=== PATIENT | female | born 1940 | race Caucasian/White ===

== ENCOUNTER 2016-09-23 12:00 | Outpatient (RCR) | payer MEDICARE, BC ==
[2016-07-01 12:30] VITALS: BP 121/73; PULSE 87; TEMP 97.5
[2016-07-08 12:45] VITALS: BP 138/46; PULSE 94; TEMP 98.2
[2016-07-15 12:55] VITALS: BP 117/50; PULSE 88; TEMP 98.4
[2016-07-21 13:00] VITALS: BP 123/58; PULSE 80; TEMP 97.6
[2016-07-29 12:38] VITALS: BP 111/55; PULSE 87; TEMP 99.2
[2016-08-05 13:53] VITALS: BP 127/55; PULSE 76; TEMP 98.3
[2016-08-12 12:23] VITALS: BP 124/65; PULSE 81; TEMP 97.5
[2016-08-19 12:24] VITALS: BP 12/68; PULSE 94; TEMP 98.3
[2016-08-26 12:19] VITALS: BP 126/53; PULSE 77; TEMP 97.1
[2016-08-31 13:15] VITALS: BP 145/53; PULSE 85; TEMP 98.4
[2016-09-09 14:38] VITALS: BP 140/52; PULSE 86; TEMP 97.5
[2016-09-16 12:20] VITALS: BP 134/63; PULSE 92; TEMP 97.9
[~2016-09-23] VITALS: Ht 172.7 cm; Wt 65.9 kg
[~2016-09-23 12:00] MED LIST: ANORO IH; BACTRIM DS 8001 TAB PO; COZAAR 50MG50 MG/TAB PO; GLUCOSAMINE/CHONDROI PO; IBU-6600 MG PO; MULTIPLE VITAMI1 TA4 PO; MVI PO; OCUVITE PO; PREMPRO 0.625/21 TAB PO; PROTONIX 40MG T40 MG PO; SPIRIVA INH IH; THEO-24100 MG PO; VITAMIN B12 PO; VITAMIN C BUFF500 MG PO; VITAMIN C500 MG PO; VITAMIN D1000 IU PO; ZEMAIRA
[2016-09-23 12:35] VITALS: BP 113/63; PULSE 81; TEMP 98.4
== END 2016-09-29 | disposition home or self-care (01) ==
LOC: EUO
DX: E88.01 Alpha-1-antitrypsin deficiency (principal)
CPT/HCPCS: J0256

== ENCOUNTER 2016-12-23 12:00 | Outpatient (RCR) | payer MEDICARE, BC ==
[2016-09-30 12:56] VITALS: BP 135/78; PULSE 73; TEMP 97.9
[2016-10-07 12:50] VITALS: BP 98/79; PULSE 76; TEMP 99.4
[2016-10-14 12:30] VITALS: BP 122/57; PULSE 73; TEMP 97.4
[2016-10-21 13:00] VITALS: BP 126/55; PULSE 84; TEMP 99
[2016-10-28 12:38] VITALS: BP 106/67; PULSE 88; TEMP 99.1
[2016-11-03 12:40] VITALS: BP 120/48; PULSE 95
[2016-11-11 12:28] VITALS: BP 139/84; PULSE 76; TEMP 98.6
[2016-11-18 12:20] VITALS: BP 116/59; PULSE 76; TEMP 98.1
[2016-11-25 12:31] VITALS: BP 133/85; PULSE 89; TEMP 98.1
[2016-12-09 12:30] VITALS: BP 118/59; PULSE 73; TEMP 97.9
[2016-12-15 12:33] VITALS: BP 132/96; PULSE 42; TEMP 98.5
[~2016-12-23] VITALS: Ht 172.7 cm; Wt 67.1 kg
[2016-12-23 12:30] VITALS: BP 122/56; PULSE 96; TEMP 97.8
== END 2016-12-29 | disposition home or self-care (01) ==
LOC: EUO
DX: E88.01 Alpha-1-antitrypsin deficiency (principal)
CPT/HCPCS: J0256

== ENCOUNTER 2017-03-23 13:00 | Outpatient (RCR) | payer MEDICARE, BC ==
[2016-12-30 12:18] VITALS: BP 109/50; PULSE 83; TEMP 97.3
[2017-01-06 13:08] VITALS: BP 111/52; PULSE 86; TEMP 98.7
[2017-01-13 12:30] VITALS: BP 124/60; PULSE 79; TEMP 97.3
[2017-01-20 12:10] VITALS: BP 128/55; PULSE 85; TEMP 97.7
[2017-01-27 12:36] VITALS: BP 118/73; PULSE 99; TEMP 97.7
[2017-02-03 12:26] VITALS: BP 118/58; PULSE 83; TEMP 98
[2017-02-10 12:24] VITALS: BP 116/56; PULSE 76; TEMP 97.7
[2017-02-16 12:27] VITALS: BP 110/59; PULSE 90; TEMP 97.4
[2017-02-24 12:31] VITALS: BP 117/51; PULSE 77; TEMP 97.5
[2017-03-03 12:45] VITALS: BP 108/55; PULSE 72; TEMP 97.6
[2017-03-11 12:25] VITALS: BP 117/69; PULSE 91; TEMP 98.7
[2017-03-17 12:11] VITALS: BP 114/65; PULSE 98; TEMP 97.4
[~2017-03-23] VITALS: Ht 172.7 cm; Wt 67.1 kg
[~2017-03-23 13:00] MED LIST changes: +GLUCOSAMINE & C1 CAP PO; -GLUCOSAMINE/CHONDROI PO; -IBU-6600 MG PO; +MOTRIN 600600 MG/TAB PO; -MULTIPLE VITAMI1 TA4 PO; +MULTIPLE VITAMI1 TA5 PO; -OCUVITE PO; +OCUVITE1 TA1 PO; -ZEMAIRA; +ZEMAIRA IV
[2017-03-23 13:10] VITALS: BP 110/54; PULSE 86; TEMP 99
== END 2017-03-30 ==
LOC: EUO
DX: E88.01 Alpha-1-antitrypsin deficiency (principal); Z79.899 Other long term (current) drug therapy
CPT/HCPCS: J0256

== ENCOUNTER 2017-06-23 12:00 | Outpatient (RCR) | payer MEDICARE, BC ==
[2017-03-31 12:13] VITALS: BP 117/75; PULSE 93; TEMP 97.3
[2017-04-07 12:31] VITALS: BP 117/57; PULSE 78; TEMP 97.5
[2017-04-14 12:40] VITALS: BP 134/66; PULSE 81; TEMP 97.5
[2017-04-21 12:15] VITALS: BP 123/72; PULSE 101; TEMP 97.4
[2017-04-27 11:28] VITALS: BP 141/60; PULSE 92; TEMP 97.3
[2017-05-05 12:59] VITALS: BP 132/61; PULSE 96; TEMP 98.4
[2017-05-12 12:15] VITALS: BP 96/65; PULSE 96; TEMP 97.7
[2017-05-18 12:50] VITALS: BP 110/58; PULSE 110; TEMP 97.9
[2017-05-26 12:38] VITALS: BP 137/84; PULSE 73; TEMP 97.5
[2017-06-02 13:25] VITALS: BP 119/82; PULSE 96; TEMP 98.2
[2017-06-09 12:42] VITALS: BP 121/82; PULSE 98; TEMP 98.2
[2017-06-16 12:17] VITALS: BP 124/58; PULSE 85; TEMP 97.4
[~2017-06-23] VITALS: Ht 172.7 cm; Wt 66.7 kg
[2017-06-23 12:36] VITALS: BP 120/68; PULSE 83; TEMP 97.4
== END 2017-06-23 13:12 | disposition home or self-care (01) ==
LOC: EUO 12:00
DX: E88.01 Alpha-1-antitrypsin deficiency (principal)
CPT/HCPCS: J0256

== ENCOUNTER 2017-09-22 12:00 | Outpatient (RCR) | payer MEDICARE, BC ==
[2017-06-30 12:43] VITALS: BP 122/49; PULSE 107; TEMP 97.4
[2017-07-07 12:29] VITALS: BP 139/80; PULSE 73; TEMP 97.7
[2017-07-14 12:30] VITALS: BP 129/54; PULSE 78; TEMP 98
[2017-07-21 12:00] VITALS: BP 114/50; PULSE 78; TEMP 97.5
[2017-07-28 12:53] VITALS: BP 124/75; PULSE 91; TEMP 97.3
[2017-08-04 12:40] VITALS: BP 122/61; PULSE 102; TEMP 98.5
[2017-08-11 12:17] VITALS: BP 126/69; PULSE 84; TEMP 97.2
[2017-08-19 14:20] VITALS: BP 146/39; PULSE 85; TEMP 97.6
[2017-09-08 12:35] VITALS: BP 123/67; PULSE 112; TEMP 98.6
[~2017-09-22] VITALS: Ht 172.7 cm; Wt 67.1 kg
[2017-09-22 12:19] VITALS: BP 123/72; PULSE 71; TEMP 97.5
== END 2017-09-28 ==
LOC: EUO
DX: E88.01 Alpha-1-antitrypsin deficiency (principal); Z79.899 Other long term (current) drug therapy
CPT/HCPCS: J0256; J3010

== ENCOUNTER 2017-12-21 12:00 | Outpatient (RCR) | payer MEDICARE, BC ==
[2017-09-29 13:09] VITALS: BP 95/60; PULSE 108; TEMP 98.4
[2017-10-06 12:24] VITALS: BP 122/56; PULSE 80; TEMP 97.6
[2017-10-13 12:20] VITALS: BP 110/64; PULSE 86; TEMP 97.3
[2017-10-20 12:38] VITALS: BP 124/61; PULSE 96; TEMP 97
[2017-10-27 13:05] VITALS: BP 123/57; PULSE 84; TEMP 97.8
[2017-11-03 12:45] VITALS: BP 118/47; PULSE 120; TEMP 98.5
[2017-11-10 12:45] VITALS: BP 135/57; PULSE 57; TEMP 97.4
[2017-11-17 12:19] VITALS: BP 95/74; PULSE 105; TEMP 98
[2017-11-24 12:50] VITALS: BP 140/70; PULSE 88; TEMP 97.9
[2017-12-01 12:46] VITALS: BP 113/72; PULSE 78; TEMP 97.1
[2017-12-08 12:33] VITALS: BP 116/60; PULSE 113; TEMP 97.3
[2017-12-15 12:33] VITALS: BP 110/62; PULSE 114; TEMP 97.5
[~2017-12-21] VITALS: Ht 172.7 cm; Wt 64.0 kg
[2017-12-21 12:40] VITALS: BP 113/59; PULSE 72; TEMP 99.4
== END 2017-12-28 | disposition still patient (30) ==
LOC: EUO
DX: E88.01 Alpha-1-antitrypsin deficiency (principal)
CPT/HCPCS: J0256

== ENCOUNTER → 2017-12-27 | Outpatient (CLI) | payer MEDICARE, BC | LOC: MC.RAD 10:20 | DX: Z12.31 Encounter for screening mammogram for malignant neoplasm of breast (principal) ==

== ENCOUNTER 2018-03-23 12:00 | Outpatient (RCR) | payer MEDICARE, BC ==
[2017-12-29 12:55] VITALS: BP 105/50; PULSE 48; TEMP 98
[2018-01-05 12:32] VITALS: BP 121/63; PULSE 88; TEMP 97.4
[2018-01-12 12:20] VITALS: BP 129/95; PULSE 104; TEMP 97.5
[2018-01-19 12:30] VITALS: BP 124/46; PULSE 84; TEMP 98.5
[2018-01-26 12:25] VITALS: BP 121/61; PULSE 90; TEMP 97.6
[2018-02-02 12:34] VITALS: BP 103/56; PULSE 112; TEMP 98.1
[2018-02-09 13:20] VITALS: BP 119/48; PULSE 112; TEMP 99.4
[2018-02-16 12:29] VITALS: BP 130/86; PULSE 89; TEMP 98.3
[2018-02-23 12:25] VITALS: BP 107/55; PULSE 82; TEMP 97.7
[2018-03-02 12:44] VITALS: BP 136/88; PULSE 95; TEMP 97.8
[2018-03-17 14:50] VITALS: BP 147/71; PULSE 78; TEMP 99.2
[~2018-03-23] VITALS: Ht 172.7 cm; Wt 61.4 kg
[2018-03-23 12:00] VITALS: BP 97/58; PULSE 98; TEMP 97.4
[~2018-03-23 12:00] MED LIST changes: +FOSAMAX 70MG TA70 MG PO
== END 2018-03-29 | disposition home or self-care (01) ==
LOC: EUO
DX: E88.01 Alpha-1-antitrypsin deficiency (principal)
CPT/HCPCS: J0256; J0257

== ENCOUNTER 2018-06-23 13:30 | Outpatient (RCR) | payer MEDICARE, BC ==
[2018-03-30 12:50] VITALS: BP 146/67; PULSE 89; TEMP 99.8
[2018-04-05 13:51] VITALS: BP 118/78; PULSE 107; TEMP 98.2
[2018-04-12 13:36] VITALS: BP 107/78; PULSE 102; TEMP 97.5
[2018-04-19 14:19] VITALS: BP 141/51; PULSE 87; TEMP 98.5
[2018-04-26 13:40] VITALS: BP 112/84; PULSE 93; TEMP 97.3
[2018-05-03 13:50] VITALS: BP 133/74; PULSE 110; TEMP 97.6
[2018-05-10 14:01] VITALS: BP 128/45; PULSE 67; TEMP 97.5
[2018-05-17 14:29] VITALS: BP 108/63; PULSE 61; TEMP 98.7
[2018-05-24 14:06] VITALS: BP 116/73; PULSE 111; TEMP 97.6
[2018-05-31 14:10] VITALS: BP 113/68; PULSE 72; TEMP 97.4
[2018-06-07 13:48] VITALS: BP 107/64; PULSE 104; TEMP 97.6
[2018-06-14 14:45] VITALS: BP 117/74; PULSE 93; TEMP 97.6
[~2018-06-23] VITALS: Ht 172.7 cm; Wt 63.8 kg
[2018-06-23 13:50] VITALS: BP 111/56; PULSE 89; TEMP 97.4
== END 2018-06-23 14:35 | disposition home or self-care (01) ==
LOC: EUO 13:30
DX: E88.01 Alpha-1-antitrypsin deficiency (principal)
CPT/HCPCS: J0256

== ENCOUNTER 2018-09-20 13:30 | Outpatient (RCR) | payer MEDICARE, BC ==
[2018-06-28 13:30] VITALS: BP 121/56; PULSE 82; TEMP 97.5
[2018-07-05 13:55] VITALS: BP 122/60; PULSE 90; TEMP 97.7
[2018-07-12 15:11] VITALS: BP 130/68; PULSE 78; TEMP 98.7
[2018-07-21 14:10] VITALS: BP 95/68; PULSE 105
[2018-07-26 14:15] VITALS: BP 128/76; PULSE 112; TEMP 97.9
[2018-08-02 14:43] VITALS: BP 129/77; PULSE 117; TEMP 98.6
[2018-08-09 13:57] VITALS: BP 144/69; PULSE 110; TEMP 99.3
[2018-08-16 13:45] VITALS: BP 120/93; PULSE 105; TEMP 97.1
[2018-08-30 14:30] VITALS: BP 106/62; PULSE 110; TEMP 97
[2018-09-06 14:45] VITALS: BP 105/39; PULSE 87; TEMP 99.1
--- NOTE | 2018-09-13 14:00 | NUR ---
pt vss throughout receiving iv medication.
[~2018-09-20] VITALS: Ht 172.7 cm; Wt 63.6 kg
[2018-09-20 14:00] VITALS: BP 134/61; PULSE 77; TEMP 97.4
== END 2018-09-26 | disposition home or self-care (01) ==
LOC: EUO
DX: E88.01 Alpha-1-antitrypsin deficiency (principal)
CPT/HCPCS: J0256

== ENCOUNTER 2018-12-20 13:30 | Outpatient (RCR) | payer MEDICARE, BC ==
[2018-09-27 15:05] VITALS: BP 101/49; PULSE 90; TEMP 99
[2018-10-04 14:22] VITALS: BP 103/50; PULSE 94; TEMP 98.9
[2018-10-11 14:14] VITALS: BP 122/31; PULSE 85; TEMP 98.8
[2018-10-18 14:05] VITALS: BP 109/61; PULSE 82; TEMP 98.9
[2018-10-25 14:08] VITALS: BP 122/96; PULSE 88; TEMP 97.4
[2018-11-01 14:10] VITALS: BP 106/44; PULSE 90; TEMP 98.8
[2018-11-08 14:07] VITALS: BP 90/65; PULSE 109; TEMP 97.4
[2018-11-15 14:20] VITALS: BP 95/46; PULSE 109; TEMP 98.5
[2018-11-15 14:50] VITALS: BP 101/43
[2018-11-22 13:46] VITALS: BP 111/71; PULSE 102; TEMP 97.4
[2018-11-22 13:55] VITALS: BP 111/71; PULSE 102; TEMP 97.4
[2018-11-29 14:00] VITALS: BP 134/80; PULSE 97; TEMP 97.9
[2018-12-06 13:57] VITALS: BP 114/57; PULSE 72; TEMP 97.8
[2018-12-13 14:02] VITALS: BP 113/62; PULSE 64; TEMP 97.3
[~2018-12-20] VITALS: Ht 172.7 cm; Wt 63.7 kg
[~2018-12-20 13:30] MED LIST changes: +CALCIUM CITRAT200 M2 PO
[2018-12-20 14:27] VITALS: BP 114/88; PULSE 100; TEMP 97.6
== END 2018-12-26 | disposition home or self-care (01) ==
LOC: EUO
DX: E88.01 Alpha-1-antitrypsin deficiency (principal)
CPT/HCPCS: J0256; J0257

== ENCOUNTER 2019-03-21 13:30 | Outpatient (RCR) | payer MEDICARE, BC ==
[2018-12-27 14:54] VITALS: BP 104/60; PULSE 86; TEMP 98.5
[2019-01-03 13:45] VITALS: BP 105/50; PULSE 77; TEMP 98.3
[2019-01-10 13:00] VITALS: BP 102/52; BP 121/39; PULSE 72; PULSE 92; TEMP 97.9; TEMP 98
[2019-01-17 14:00] VITALS: BP 105/57; PULSE 98; TEMP 99
[2019-01-24 13:51] VITALS: BP 104/74; PULSE 83; TEMP 97.1
[2019-01-31 13:59] VITALS: BP 111/54; PULSE 107; TEMP 97.8
[2019-02-07 13:46] VITALS: BP 112/68; PULSE 60; TEMP 98.1
--- NOTE | 2019-02-07 13:52 | NUR ---
22G INITITAED TO LEFT WRIST. PT TOLERATED WELL.
--- NOTE | 2019-02-07 14:25 | NUR ---
report from Ramón Jose.
[2019-02-13 12:44] VITALS: BP 95/62; PULSE 98; TEMP 99.2
[2019-02-21 14:26] VITALS: BP 122/46; PULSE 108; TEMP 98.5
[2019-02-28 13:47] VITALS: BP 112/66; PULSE 107; TEMP 98.2
[2019-03-07 13:58] VITALS: BP 111/58; PULSE 89; TEMP 97.8
[2019-03-12 13:43] VITALS: BP 139/61; PULSE 113; TEMP 98.1
[~2019-03-21] VITALS: Ht 172.7 cm; Wt 64.0 kg
[~2019-03-21 13:30] MED LIST changes: +MICARDIS20 MG PO
[2019-03-21 13:48] VITALS: BP 116/72; PULSE 111; TEMP 97.9
== END 2019-03-27 | disposition home or self-care (01) ==
LOC: EUO
DX: E88.01 Alpha-1-antitrypsin deficiency (principal); Z79.899 Other long term (current) drug therapy
CPT/HCPCS: J0256

== ENCOUNTER → 2019-04-12 | Outpatient (CLI) | payer MEDICARE, BC | LOC: MC.RAD 09:43 | DX: Z12.31 Encounter for screening mammogram for malignant neoplasm of breast (principal) ==

== ENCOUNTER 2019-06-22 13:30 | Outpatient (RCR) | payer MEDICARE, BC ==
[2019-04-04 14:20] VITALS: BP 107/66; PULSE 114; TEMP 98.7
[2019-04-11 14:08] VITALS: BP 130/59; PULSE 85; TEMP 98.5
[2019-04-18 13:30] VITALS: BP 120/68; PULSE 92; TEMP 97.5
[2019-04-25 14:08] VITALS: BP 114/46; PULSE 102; TEMP 98.8
[2019-05-02 13:46] VITALS: BP 123/58; PULSE 109; TEMP 98.5
[2019-05-09 13:33] VITALS: BP 112/66; PULSE 104; TEMP 98.2
[2019-05-16 14:21] VITALS: BP 112/80; PULSE 93; TEMP 97.9
[2019-05-23 13:40] VITALS: BP 103/60; PULSE 97; TEMP 97.3
[2019-05-30 15:00] VITALS: BP 104/49; PULSE 107; TEMP 98
[2019-06-06 14:30] VITALS: BP 131/54; PULSE 93; TEMP 99.1
[2019-06-13 13:50] VITALS: BP 123/55; PULSE 86; TEMP 97.2
[~2019-06-22] VITALS: Ht 172.7 cm; Wt 64.7 kg
[2019-06-22 14:49] VITALS: BP 129/55; PULSE 84; TEMP 98.3
== END 2019-06-22 15:14 | disposition home or self-care (01) ==
LOC: EUO 13:30
DX: E88.01 Alpha-1-antitrypsin deficiency (principal); Z79.899 Other long term (current) drug therapy
CPT/HCPCS: J0256

== ENCOUNTER 2019-12-26 13:30 | Outpatient (RCR) | payer MEDICARE, BC ==
[2019-10-10 13:50] VITALS: BP 138/68; PULSE 78; TEMP 97.4
[2019-10-17 13:45] VITALS: BP 145/70; PULSE 87; TEMP 98.3
[2019-10-24 13:54] VITALS: BP 110/53; PULSE 83; TEMP 97.3
[2019-10-31 13:46] VITALS: BP 116/54; PULSE 119; TEMP 97.9
[2019-10-31 15:09] VITALS: PULSE 80
[2019-11-07 13:58] VITALS: BP 114/71; PULSE 96; TEMP 97.7
[2019-11-14 15:02] VITALS: BP 109/52; PULSE 81; TEMP 97.7
[2019-11-21 13:58] VITALS: BP 98/57; PULSE 103; TEMP 98.4
--- NOTE | 2019-11-28 13:30 | NUR ---
arrived in express unit
[2019-11-28 13:51] VITALS: BP 100/42; PULSE 94; TEMP 98.1
--- NOTE | 2019-11-28 14:46 | NUR ---
infusion completed, int discontinued
[2019-12-05 13:54] VITALS: BP 102/64; PULSE 103; TEMP 97.6
[2019-12-12 14:25] VITALS: BP 103/61; PULSE 96; TEMP 97.6
--- NOTE | 2019-12-18 18:24 | NUR ---
LEFT MESSAGE AND ENCOURAGED PT TO RETURN PHONE CALL TO REVIEW ID SCREENING
[2019-12-19 14:22] VITALS: BP 100/56; PULSE 93; TEMP 98.2
[~2019-12-26] VITALS: Ht 172.7 cm; Wt 64.0 kg
[2019-12-26 14:30] VITALS: BP 106/62; PULSE 93; TEMP 98.3
== END 2020-01-01 | disposition home or self-care (01) ==
LOC: EUO
DX: E88.01 Alpha-1-antitrypsin deficiency (principal); Z79.899 Other long term (current) drug therapy
CPT/HCPCS: J0256

== ENCOUNTER 2020-03-25 09:00 | Outpatient (RCR) | payer MEDICARE, BC ==
[2020-01-02 13:55] VITALS: BP 101/67; PULSE 99; TEMP 97.7
[2020-01-09 14:47] VITALS: BP 139/97; PULSE 96; TEMP 97.6
[2020-01-16 13:36] VITALS: BP 116/72; PULSE 103; TEMP 97.7
[2020-01-23 15:09] VITALS: BP 109/45; PULSE 87; TEMP 97.9
[2020-01-30 14:03] VITALS: BP 133/72; PULSE 93; TEMP 98.2
[2020-02-06 14:36] VITALS: BP 111/55; PULSE 87; TEMP 98.4
[2020-02-13 14:10] VITALS: BP 108/47; PULSE 102; TEMP 98
[2020-02-20 13:52] VITALS: BP 114/70; PULSE 88; TEMP 98.2
[2020-02-27 14:26] VITALS: BP 116/63; PULSE 94; TEMP 98
[2020-03-05 14:05] VITALS: BP 123/67; PULSE 94; TEMP 98.1
[2020-03-19 14:27] VITALS: BP 132/62; PULSE 85; TEMP 9.9
[~2020-03-25] VITALS: Ht 172.7 cm; Wt 63.2 kg
[2020-03-25 10:14] VITALS: BP 109/65; PULSE 81; TEMP 98
== END 2020-03-27 09:09 | disposition home or self-care (01) ==
LOC: EUO 09:00
DX: E88.01 Alpha-1-antitrypsin deficiency (principal); Z79.899 Other long term (current) drug therapy
CPT/HCPCS: J0256

== ENCOUNTER 2020-06-03 08:09 | Outpatient (CLI) | payer MEDICARE, BC ==
[~2020-06-03] VITALS: Ht 172.7 cm; Wt 61.3 kg
[2020-06-03 08:45] VITALS: BP 115/67; PULSE 90; TEMP 98.2
[2020-06-03 09:24] LABS: HEMATOCRIT 39.4 % (37.0-47.0); HEMOGLOBIN 13.6 g/dl (12.5-16.0); MEAN CELL VOLUME 96 fl (80.0-100.0); MEAN CORPUSCULAR HEMOGLOBIN 33 pg (27.0-31.0); MEAN CORPUSCULAR HGB CONC 35 g/dl (33.0-37.0); MEAN PLATELET VOLUME 10.2 fl (7.4-10.4); PLATELET COUNT 193 K/mm3 (130-400); RED BLOOD COUNT 4.09 M/mm3 (4.10-5.30); REDCELL DISTRIBUTION WIDTH-CV 13.3 % (11.5-14.5)
[2020-06-03 09:39] LABS: CALCIUM 9.3 mg/dL (8.4-10.2); CREATININE, serum 0.81 (0.52-1.25); POTASSIUM 3.9 mmol/L (3.4-5.0)
[2020-06-03 10:15] VITALS: BP 147/76; PULSE 79
[2020-06-03 10:30] VITALS: BP 141/70; PULSE 83
[2020-06-03 10:45] VITALS: BP 135/62; PULSE 79
[2020-06-03 11:00] VITALS: BP 145/73; PULSE 88
[2020-06-03] MEDS ORDERED: LANOXIN 0.120.125 MG PO (11:32)
== END 2020-06-03 12:30 | disposition home or self-care (01) ==
LOC: COL.RAD 08:09
PROVIDERS: Internal Medicine Cardiovascular Disease
DX: I34.0 Nonrheumatic mitral (valve) insufficiency (principal)
CPT/HCPCS: J2704

== ENCOUNTER 2020-06-25 13:30 | Outpatient (RCR) | payer MEDICARE, BC ==
[2020-04-02 14:45] VITALS: BP 122/50; PULSE 97; TEMP 97.9
[2020-04-09 14:34] VITALS: BP 102/66; PULSE 90; TEMP 98
[2020-04-16 14:17] VITALS: BP 112/57; PULSE 110; TEMP 98.8
[2020-04-23 14:00] VITALS: BP 121/68; PULSE 93; TEMP 97.1
[2020-04-29 10:59] VITALS: BP 133/88; PULSE 84; TEMP 98.4
[2020-05-08 15:46] VITALS: BP 117/57; PULSE 95; TEMP 98.7
[2020-05-14 10:11] VITALS: BP 102/60; PULSE 94; TEMP 98.2
[2020-05-21 14:57] VITALS: BP 112/67; PULSE 97; TEMP 97.6
[2020-05-28 14:46] VITALS: BP 114/61; PULSE 84; TEMP 98.6
[2020-06-04 14:18] VITALS: BP 93/60; PULSE 92; TEMP 98.4
[2020-06-11 14:00] VITALS: BP 117/81; PULSE 86; TEMP 97.9
[2020-06-18 14:35] VITALS: BP 106/61; PULSE 90; TEMP 97.9
[~2020-06-25] VITALS: Ht 172.7 cm; Wt 61.2 kg
[~2020-06-25 13:30] MED LIST changes: +LANOXIN 0.120.125 MG PO
[2020-06-25 13:39] VITALS: BP 139/79; PULSE 85; TEMP 97.4
== END 2020-06-30 | disposition home or self-care (01) ==
LOC: EUO
DX: E88.01 Alpha-1-antitrypsin deficiency (principal); Z79.899 Other long term (current) drug therapy
CPT/HCPCS: J0256

== ENCOUNTER 2020-09-24 13:30 | Outpatient (RCR) | payer MEDICARE, BC ==
[2020-07-02 15:12] VITALS: BP 89/58; PULSE 98; TEMP 98.7
[2020-07-09 16:07] VITALS: BP 128/67; PULSE 83; TEMP 96.6
[2020-07-16 14:29] VITALS: BP 129/77; PULSE 94; TEMP 98
[2020-07-23 14:00] VITALS: BP 102/59; PULSE 76; TEMP 97.8
--- NOTE | 2020-07-30 13:50 | NUR ---
blood infused, port flushed per protocol, needle removed, pt discharged amb.
[2020-07-30 14:08] VITALS: BP 97/63; PULSE 88; TEMP 97.9
--- NOTE | 2020-07-30 15:23 | NUR ---
pt tolerated drug well, no c/o, int d'cd, pt stayed 15 min after infusion
[2020-08-06 14:29] VITALS: BP 99/56; PULSE 94; TEMP 98.2
[2020-08-13 14:02] VITALS: BP 126/74; PULSE 86; TEMP 97.8
[2020-08-20 11:40] VITALS: BP 118/68; PULSE 95; TEMP 97.5
[2020-08-27 13:50] VITALS: BP 100/53; PULSE 99; TEMP 97.4
[2020-09-03 15:00] VITALS: BP 108/50; PULSE 83; TEMP 98.2
[2020-09-10 15:03] VITALS: BP 96/59; PULSE 85; TEMP 98
[2020-09-17 13:55] VITALS: BP 114/57; PULSE 90; TEMP 97.8
[~2020-09-24] VITALS: Ht 172.7 cm; Wt 61.9 kg
[2020-09-24 13:39] VITALS: BP 96/58; PULSE 96; TEMP 98
[2020-10-29] MEDS ORDERED: ANORO IH (13:48)
== END 2020-09-24 15:08 | disposition home or self-care (01) ==
LOC: EUO 13:30
DX: E88.01 Alpha-1-antitrypsin deficiency (principal); Z79.899 Other long term (current) drug therapy
CPT/HCPCS: J0256

== ENCOUNTER 2020-12-24 13:30 | Outpatient (RCR) | payer MEDICARE, BC ==
[2020-10-01 14:33] VITALS: BP 105/68; PULSE 96; TEMP 97.8
[2020-10-08 14:31] VITALS: BP 95/56; PULSE 91; TEMP 98.3
[2020-10-15 14:33] VITALS: BP 101/57; PULSE 78; TEMP 98.1
[2020-10-22 13:56] VITALS: BP 113/60; PULSE 91; TEMP 97.7
[2020-10-29 14:20] VITALS: BP 119/66; PULSE 88; TEMP 97.9
[2020-11-05 13:48] VITALS: BP 124/69; PULSE 83; TEMP 97.8
[2020-11-12 14:30] VITALS: BP 96/59; PULSE 87; TEMP 98.1
[2020-11-19 14:08] VITALS: BP 93/60; PULSE 86; TEMP 97.9
[2020-11-27 14:29] VITALS: BP 101/49; PULSE 88; TEMP 98.3
[2020-12-03 14:51] VITALS: BP 100/56; PULSE 92; TEMP 98.1
[2020-12-10 14:18] VITALS: BP 101/64; PULSE 76; TEMP 98.3
[2020-12-17 15:43] VITALS: BP 101/60; PULSE 73; TEMP 98.1
[~2020-12-24] VITALS: Ht 172.7 cm; Wt 61.4 kg
[2020-12-24 14:33] VITALS: BP 96/60; PULSE 80; TEMP 97.4
== END 2020-12-30 | disposition home or self-care (01) ==
LOC: EUO
DX: E88.01 Alpha-1-antitrypsin deficiency (principal); Z79.899 Other long term (current) drug therapy
CPT/HCPCS: J0256

== ENCOUNTER 2021-03-25 13:30 | Outpatient (RCR) | payer MEDICARE, BC ==
[2020-12-31 13:58] VITALS: BP 122/55; PULSE 94; TEMP 98
[2021-01-07 14:05] VITALS: BP 98/67; PULSE 94; TEMP 98
[2021-01-14 13:41] VITALS: BP 92/57; PULSE 90; TEMP 97.7
[2021-01-21 13:58] VITALS: BP 102/43; PULSE 101; TEMP 97.7
[2021-01-28 14:09] VITALS: BP 99/63; PULSE 89; TEMP 97.9
[2021-02-04 14:07] VITALS: BP 103/62; PULSE 94; TEMP 98.5
[2021-02-10 14:56] VITALS: BP 102/71; PULSE 98; TEMP 98
[2021-02-19 14:03] VITALS: BP 128/59; PULSE 92; TEMP 97.7
[2021-02-25 15:04] VITALS: BP 103/80; PULSE 79; TEMP 97.7
[2021-03-04 13:42] VITALS: BP 100/49; PULSE 93; TEMP 97.7
[2021-03-11 14:23] VITALS: BP 130/52; PULSE 93; TEMP 98.1
[2021-03-18 14:25] VITALS: BP 119/64; PULSE 89; TEMP 98
[~2021-03-25] VITALS: Ht 172.7 cm; Wt 62.4 kg
[2021-03-25 13:46] VITALS: BP 132/70; PULSE 84; TEMP 98
== END 2021-03-31 | disposition home or self-care (01) ==
LOC: EUO
DX: E88.01 Alpha-1-antitrypsin deficiency (principal)
CPT/HCPCS: J0256

== ENCOUNTER 2021-07-22 13:30 | Outpatient (RCR) | payer MEDICARE, BC ==
[2021-07-01 14:45] VITALS: BP 110/78; PULSE 89; TEMP 98
[2021-07-08 15:10] VITALS: BP 91/53; PULSE 87; TEMP 98.4
[2021-07-15 13:58] VITALS: BP 119/67; PULSE 95; TEMP 97.6
[~2021-07-22] VITALS: Ht 172.7 cm; Wt 63.5 kg
[2021-07-22 14:33] VITALS: BP 108/53; PULSE 94; TEMP 97.8
== END 2021-07-27 | disposition home or self-care (01) ==
LOC: EUO
DX: E88.01 Alpha-1-antitrypsin deficiency (principal)
CPT/HCPCS: J0256

== ENCOUNTER 2021-08-19 13:30 | Outpatient (RCR) | payer MEDICARE, BC ==
[2021-07-29 14:13] VITALS: BP 99/57; PULSE 88; TEMP 97.7
[2021-08-05 13:49] VITALS: BP 126/73; PULSE 97; TEMP 98
[2021-08-12 15:44] VITALS: BP 105/54; PULSE 82; TEMP 98.1
[~2021-08-19] VITALS: Ht 172.7 cm; Wt 62.2 kg
[2021-08-19 13:40] VITALS: BP 137/62; PULSE 93; TEMP 97.6
== END 2021-08-24 | disposition home or self-care (01) ==
LOC: EUO
DX: E88.01 Alpha-1-antitrypsin deficiency (principal)
CPT/HCPCS: J0256

== ENCOUNTER → 2021-09-18 | Outpatient (CLI) | payer MEDICARE, BC | LOC: ZCOL.LAB 08:51 | DX: I34.0 Nonrheumatic mitral (valve) insufficiency (principal); Z20.822 Contact with and (suspected) exposure to COVID-19 ==

== ENCOUNTER 2021-09-23 13:30 | Outpatient (RCR) | payer MEDICARE, BC ==
[2021-08-26 14:44] VITALS: BP 111/67; PULSE 88; TEMP 98.4
[2021-09-02 14:28] VITALS: BP 109/67; PULSE 90; TEMP 98.2
[2021-09-09 14:08] VITALS: BP 118/49; PULSE 90; TEMP 98
[2021-09-16 14:30] VITALS: BP 117/67; PULSE 82; TEMP 97.7
[~2021-09-23] VITALS: Ht 172.7 cm; Wt 62.8 kg
[2021-09-23 14:16] VITALS: BP 107/73; PULSE 92; TEMP 98.1
== END 2021-09-24 | disposition home or self-care (01) ==
LOC: EUO
DX: E88.01 Alpha-1-antitrypsin deficiency (principal)
CPT/HCPCS: J0256

== ENCOUNTER 2021-10-21 13:30 | Outpatient (RCR) | payer MEDICARE, BC ==
[2021-09-30 13:57] VITALS: BP 96/56; PULSE 92; TEMP 97.7
[2021-10-07 14:11] VITALS: BP 95/59; PULSE 80; TEMP 98
[2021-10-15 15:16] VITALS: BP 108/60; PULSE 87; TEMP 98.3
[~2021-10-21] VITALS: Ht 172.7 cm; Wt 62.4 kg
[2021-10-21 14:54] VITALS: BP 83/44; PULSE 87; TEMP 97.9
== END 2021-10-21 15:18 | disposition home or self-care (01) ==
LOC: EUO 13:30
DX: E88.01 Alpha-1-antitrypsin deficiency (principal)
CPT/HCPCS: J0256

== ENCOUNTER → 2021-11-05 | Outpatient (CLI) | payer MEDICARE, BC | LOC: COL.RAD 09:54 | DX: R19.5 Other fecal abnormalities (principal) ==

== ENCOUNTER 2021-11-18 13:30 | Outpatient (RCR) | payer MEDICARE, BC ==
[2021-10-28 14:45] VITALS: BP 114/70; PULSE 81; TEMP 97.3
[2021-11-04 14:45] VITALS: BP 114/57; PULSE 80; TEMP 97.8
[2021-11-11 13:54] VITALS: BP 133/59; PULSE 100; TEMP 97.6
[~2021-11-18] VITALS: Ht 172.7 cm; Wt 60.9 kg
[2021-11-18 14:01] VITALS: BP 100/52; PULSE 99; TEMP 97.6
== END 2021-11-19 15:00 | disposition home or self-care (01) ==
LOC: EUO 13:30
DX: E88.01 Alpha-1-antitrypsin deficiency (principal)
CPT/HCPCS: J0256

== ENCOUNTER 2021-12-23 13:30 | Outpatient (RCR) | payer MEDICARE, BC ==
[2021-11-25 14:25] VITALS: BP 128/53; PULSE 90; TEMP 98.2
[2021-12-02 15:06] VITALS: BP 127/69; PULSE 77; TEMP 98.4
[2021-12-09 13:53] VITALS: BP 125/67; PULSE 69; TEMP 98.8
[2021-12-16 13:30] VITALS: BP 117/68; PULSE 72; TEMP 97.8
[~2021-12-23] VITALS: Ht 172.7 cm; Wt 60.9 kg
[2021-12-23 14:00] VITALS: BP 110/59; PULSE 89; TEMP 97.9
== END 2021-12-24 | disposition home or self-care (01) ==
LOC: EUO
DX: E88.01 Alpha-1-antitrypsin deficiency (principal)
CPT/HCPCS: J0256

== ENCOUNTER 2022-01-20 13:30 | Outpatient (RCR) | payer MEDICARE, BC ==
[2021-12-30 14:47] VITALS: BP 104/58; PULSE 93; TEMP 98.4
[2022-01-06 14:42] VITALS: BP 124/63; PULSE 89; TEMP 98.2
[2022-01-13 14:24] VITALS: BP 103/79; PULSE 94; TEMP 97.8
[~2022-01-20] VITALS: Ht 152.4 cm; Wt 60.7 kg
[~2022-01-20 13:30] MED LIST changes: +B-121000 MCG PO; -VITAMIN B12 PO; -VITAMIN D1000 IU PO; +VITAMIN D31000 I1 PO
[2022-01-20 13:47] VITALS: BP 122/68; PULSE 84; TEMP 97.2
== END 2022-01-24 | disposition home or self-care (01) ==
LOC: EUO
DX: E88.01 Alpha-1-antitrypsin deficiency (principal)
CPT/HCPCS: J0256

== ENCOUNTER 2022-02-24 13:30 | Outpatient (RCR) | payer MEDICARE, BC ==
[2022-01-27 14:45] VITALS: BP 99/62; PULSE 92; TEMP 98.1
[2022-02-03 13:55] VITALS: BP 100/52; PULSE 104; TEMP 97.4
[2022-02-10 13:42] VITALS: BP 117/70; PULSE 107; TEMP 97.6
[2022-02-17 14:21] VITALS: BP 104/64; PULSE 90; TEMP 97.9
[~2022-02-24] VITALS: Ht 152.4 cm; Wt 61.1 kg
[2022-02-24 13:59] VITALS: BP 103/60; PULSE 85; TEMP 97.4
== END 2022-02-24 14:24 | disposition home or self-care (01) ==
LOC: EUO 13:30
DX: E88.01 Alpha-1-antitrypsin deficiency (principal)
CPT/HCPCS: J0256

== ENCOUNTER 2022-03-24 13:30 | Outpatient (RCR) | payer MEDICARE, BC ==
[2022-03-03 14:37] VITALS: BP 126/39; PULSE 78; TEMP 98
[2022-03-10 14:00] VITALS: BP 107/53; PULSE 88; TEMP 97.8
[2022-03-18 13:58] VITALS: BP 115/71; PULSE 90; TEMP 98.2
[~2022-03-24] VITALS: Ht 152.4 cm; Wt 61.0 kg
[2022-03-24 13:15] VITALS: BP 108/61; PULSE 88; TEMP 97.7
[2022-04-28] MEDS ORDERED: ASPIRIN 81M81 MG/TA2 PO (14:03)
[2022-04-28] MEDS ORDERED: ELIQUIS 5MG PO (14:03)
== END 2022-03-26 | disposition home or self-care (01) ==
LOC: EUO
DX: E88.01 Alpha-1-antitrypsin deficiency (principal)
CPT/HCPCS: J0256

== ENCOUNTER 2022-03-31 13:36 | Outpatient (RCR) | payer MEDICARE, BC ==
[~2022-03-31] VITALS: Ht 152.4 cm; Wt 60.5 kg
[2022-03-31 14:03] VITALS: BP 117/68; PULSE 100; TEMP 98.4
--- NOTE | 2022-04-20 08:41 | NUR ---
Pt has been inpt at another facility per pt report.
[2022-04-28] MEDS ORDERED: ASPIRIN 81M81 MG/TA2 PO (14:03)
[2022-04-28] MEDS ORDERED: ELIQUIS 5MG PO (14:03)
== END 2022-04-20 08:41 | disposition home or self-care (01) ==
LOC: EUO 13:36
DX: E88.01 Alpha-1-antitrypsin deficiency (principal)
CPT/HCPCS: J0256

== ENCOUNTER 2022-04-21 13:29 | Outpatient (RCR) | payer MEDICARE, BC ==
[~2022-04-21] VITALS: Ht 152.4 cm; Wt 60.3 kg
[2022-04-21 14:15] VITALS: BP 111/57; PULSE 116; TEMP 97.3
[2022-04-28] MEDS ORDERED: ASPIRIN 81M81 MG/TA2 PO (14:03)
[2022-04-28] MEDS ORDERED: ELIQUIS 5MG PO (14:03)
== END 2022-04-26 | disposition still patient (30) ==
LOC: EUO
DX: E88.01 Alpha-1-antitrypsin deficiency (principal)
CPT/HCPCS: J0256

== ENCOUNTER 2022-07-21 13:30 | Outpatient (RCR) | payer MEDICARE, BC ==
[2022-06-30 14:43] VITALS: BP 112/61; PULSE 103; TEMP 98
[2022-07-07 14:42] VITALS: BP 109/70; PULSE 99; TEMP 97.8
[2022-07-14 13:50] VITALS: BP 122/77; PULSE 101; TEMP 98.2
[~2022-07-21] VITALS: Ht 172.7 cm; Wt 60.3 kg
[~2022-07-21 13:30] MED LIST changes: +ASPIRIN 81M81 MG/TA2 PO; +ELIQUIS 5MG PO
[2022-07-21 13:47] VITALS: BP 149/70; PULSE 102; TEMP 98
== END 2022-07-21 15:34 | disposition home or self-care (01) ==
LOC: EUO 13:30
DX: E88.01 Alpha-1-antitrypsin deficiency (principal)
CPT/HCPCS: J0256

== ENCOUNTER 2022-07-26 12:08 | Outpatient (RCR) | payer MEDICARE, BC | END 2022-07-27 | disposition home or self-care (01) | LOC: COL.CR | DX: Z48.812 Encounter for surgical aftercare following surgery on the circulatory system (principal); Z95.2 Presence of prosthetic heart valve ==

== ENCOUNTER 2022-08-04 13:31 | Outpatient (RCR) | payer MEDICARE, BC | END 2022-08-06 14:53 | disposition home or self-care (01) | LOC: COL.CR 13:31 | DX: Z48.812 Encounter for surgical aftercare following surgery on the circulatory system (principal); Z95.2 Presence of prosthetic heart valve ==

== ENCOUNTER 2022-08-18 13:30 | Outpatient (RCR) | payer MEDICARE, BC ==
[2022-08-04 14:08] VITALS: BP 116/66; PULSE 104; TEMP 97.8
[2022-08-11 14:41] VITALS: BP 134/45; PULSE 78; TEMP 98.2
[~2022-08-18] VITALS: Ht 172.7 cm; Wt 61.1 kg
[2022-08-18 14:23] VITALS: BP 107/54; PULSE 101; TEMP 97.7
== END 2022-08-19 16:04 | disposition home or self-care (01) ==
LOC: EUO 13:30
DX: E88.01 Alpha-1-antitrypsin deficiency (principal)
CPT/HCPCS: J0256

== ENCOUNTER 2022-09-22 13:30 | Outpatient (RCR) | payer MEDICARE, BC ==
[2022-08-25 14:49] VITALS: BP 118/74; BP 129/76; PULSE 60; PULSE 96; TEMP 97.9; TEMP 98.2
[2022-09-01 13:50] VITALS: BP 115/70; PULSE 93; TEMP 98
[2022-09-08 14:14] VITALS: BP 124/80; PULSE 72; TEMP 97.8
--- NOTE | 2022-09-08 14:47 | NUR ---
Pt exits dept with steady gait. She tolerated infusion without issue.
[2022-09-15 14:19] VITALS: BP 99/67; PULSE 96; TEMP 97.7
[~2022-09-22] VITALS: Ht 172.7 cm; Wt 60.9 kg
[2022-09-22 14:51] VITALS: BP 99/61; PULSE 92; TEMP 97.7
== END 2022-09-22 15:26 | disposition home or self-care (01) ==
LOC: EUO 13:30
DX: E88.01 Alpha-1-antitrypsin deficiency (principal)
CPT/HCPCS: J0256

== ENCOUNTER 2022-10-20 13:30 | Outpatient (RCR) | payer MEDICARE, BC ==
[2022-09-29 14:05] VITALS: BP 116/66; PULSE 95; TEMP 97.5
[2022-10-06 14:07] VITALS: BP 109/69; PULSE 96; TEMP 96
[2022-10-13 14:35] VITALS: BP 92/52; PULSE 94; TEMP 97.8
[~2022-10-20] VITALS: Ht 172.7 cm; Wt 60.9 kg
[2022-10-20 14:14] VITALS: BP 100/56; PULSE 99; TEMP 97.6
== END 2022-10-20 15:00 | disposition home or self-care (01) ==
LOC: EUO 13:30
DX: E88.01 Alpha-1-antitrypsin deficiency (principal)
CPT/HCPCS: J0256

== ENCOUNTER 2023-02-23 13:30 | Outpatient (RCR) | payer MEDICARE, BC ==
[2023-01-26 13:30] VITALS: BP 107/71; PULSE 92; TEMP 97.9
[2023-02-02 13:47] VITALS: BP 124/63; PULSE 90; TEMP 98.4
[2023-02-09 14:23] VITALS: BP 113/72; PULSE 92; TEMP 97.5
[2023-02-16 13:48] VITALS: BP 99/61; PULSE 94; TEMP 97.6
[~2023-02-23] VITALS: Ht 172.7 cm; Wt 60.8 kg
[2023-02-23 14:23] VITALS: BP 135/37; PULSE 100; TEMP 97.2
[2023-03-02] MEDS ORDERED: LIPITOR 10MG10 MG PO (13:49)
== END 2023-02-24 | disposition home or self-care (01) ==
LOC: EUO
DX: E88.01 Alpha-1-antitrypsin deficiency (principal); Z79.899 Other long term (current) drug therapy
CPT/HCPCS: J0256

== ENCOUNTER 2023-03-23 13:30 | Outpatient (RCR) | payer MEDICARE, BC ==
[2023-03-02 13:58] VITALS: BP 136/88; PULSE 92; TEMP 97.5
[2023-03-09 14:09] VITALS: BP 126/61; PULSE 92; TEMP 98.2
[2023-03-16 13:34] VITALS: BP 129/75; PULSE 102; TEMP 97.9
[~2023-03-23] VITALS: Ht 172.7 cm; Wt 61.3 kg
[~2023-03-23 13:30] MED LIST changes: +LIPITOR 10MG10 MG PO
[2023-03-23 14:12] VITALS: BP 113/66; PULSE 73; TEMP 97.7
== END 2023-03-23 14:58 | disposition home or self-care (01) ==
LOC: EUO 13:30
DX: E88.01 Alpha-1-antitrypsin deficiency (principal)
CPT/HCPCS: J0256

== ENCOUNTER 2023-04-20 13:30 | Outpatient (RCR) | payer MEDICARE, BC ==
[2023-03-30 14:21] VITALS: BP 129/61; PULSE 90; TEMP 98.3
[2023-04-06 13:44] VITALS: BP 132/80; PULSE 101; TEMP 97.7
[2023-04-12 09:24] VITALS: BP 131/74; PULSE 92; TEMP 97.9
[~2023-04-20] VITALS: Ht 167.6 cm; Wt 61.1 kg
== END 2023-04-20 15:01 | disposition home or self-care (01) ==
LOC: EUO 13:30
DX: E88.01 Alpha-1-antitrypsin deficiency (principal)
CPT/HCPCS: J0256

== ENCOUNTER 2023-06-23 13:56 | Outpatient (RCR) | payer MEDICARE, BC ==
[~2023-06-23] VITALS: Ht 172.7 cm; Wt 64.8 kg
[2023-06-23 14:49] VITALS: BP 158/88; PULSE 100; TEMP 98
== END 2023-06-23 15:40 ==
LOC: EUO 13:56
DX: E88.01 Alpha-1-antitrypsin deficiency (principal)
CPT/HCPCS: J0256

== ENCOUNTER 2023-07-06 13:30 | Outpatient (RCR) | payer MEDICARE, BC ==
[2023-06-29 13:43] VITALS: BP 145/70; PULSE 100; TEMP 97.5
[~2023-07-06] VITALS: Ht 172.7 cm; Wt 62.0 kg
[~2023-07-06 13:30] MED LIST changes: +NS Flush 25 ML IV Bag IV PRN; +WATER FOR INJECTION STERILE IV SCH; +[UNRECOGNIZED DRUG - OTHER] IV SCH
[2023-07-06 14:40] VITALS: BP 109/61; PULSE 104; TEMP 97.8
--- NOTE | 2023-07-27 11:34 | NUR ---
Pt called to cancel apt scheduled for today.Per pt request apt kept for next week as previously scheduled
[2023-07-27] MEDS ORDERED: TYLENOL 500MG500 MG PO (22:26)
[2023-07-27] MEDS ORDERED: MOTRIN 200200 MG/TAB PO (22:27)
[2023-07-27] MEDS ORDERED: FLEXERIL5 MG PO (22:28)
[2023-07-28] MEDS ORDERED: VOLTAREN GEL 1%1 TU TP (11:31)
== END 2023-07-27 11:35 | disposition home or self-care (01) ==
LOC: EUO 13:30
DX: E88.01 Alpha-1-antitrypsin deficiency (principal)
CPT/HCPCS: J0256

== ENCOUNTER → 2023-07-11 | Outpatient (CLI) | payer MEDICARE, BC ==
[~2023-07-11] MED LIST changes: -NS Flush 25 ML IV Bag IV PRN; -WATER FOR INJECTION STERILE IV SCH; -[UNRECOGNIZED DRUG - OTHER] IV SCH
== END ==
LOC: COL.RAD 13:20
DX: J43.8 Other emphysema (principal); M48.54XA Collapsed vertebra, not elsewhere classified, thoracic region, initial encounter for fracture
CPT/HCPCS: Q9967

== ENCOUNTER 2023-07-25 12:38 | Emergency (ER) | payer MEDICARE, BC ==
[~2023-07-25] VITALS: Ht 170.2 cm; Wt 61.4 kg
[2023-07-25 12:48] VITALS: TEMP 97.4
[2023-07-25 14:55] VITALS: BP 162/94; PULSE 77
== END 2023-07-25 14:55 | disposition home or self-care (01) ==
LOC: COL.ER 12:38
DX: M25.552 Pain in left hip (principal); M79.605 Pain in left leg; Z87.891 Personal history of nicotine dependence; W10.8XXA Fall (on) (from) other stairs and steps, initial encounter

== ENCOUNTER 2023-07-27 20:31 | Inpatient (IN) | payer MEDICARE, BC ==
[~2023-07-27] VITALS: Ht 172.7 cm; Wt 61.0 kg
[2023-07-27 20:44] LABS: BASO # 0.1 K/mm3 (0.0-0.2); EOS # 0.2 K/mm3 (0.0-0.7); EOS % 3.3 % (0.0-4.0); GRAN # 4.3 K/mm3 (1.4-6.5); GRAN % 62.2 % (42.2-75.2); HEMOGLOBIN 13.9 g/dl (12.5-16.0); LYMPH # 1.6 K/mm3 (1.2-3.4); LYMPH % 22.5 % (20.0-51.0); MEAN CELL VOLUME 99 fl (80.0-100.0); MEAN CORPUSCULAR HEMOGLOBIN 33 pg (27-31); MEAN CORPUSCULAR HGB CONC 33 g/dl (33.0-37.0); MEAN PLATELET VOLUME 9.1 fl (7.4-10.4); MONO # 0.7 K/mm3 (0.1-0.6); MONO % 10.7 % (1.7-9.3); PLATELET COUNT 314 K/mm3 (130-400); RED BLOOD COUNT 4.25 M/mm3 (4.10-5.30); REDCELL DISTRIBUTION WIDTH-CV 14.3 % (11.5-14.5)
[2023-07-27 21:00] VITALS: BP_SYST 153
[2023-07-27 21:01] LABS: BILIRUBIN,TOTAL 0.8 mg/dL (0.2-1.2); CALCIUM 9.7 mg/dL (8.4-10.2); CREATININE, serum 0.85 mg/dL (0.57-1.11); POTASSIUM 4.5 mmol/L (3.5-4.5); TOTAL PROTEIN 7.5 gm/dL (6.2-8.1)
[2023-07-27 21:40] LABS: COLLECTION METHOD CLEAN CATCH
[2023-07-27 21:57] LABS: PH 5.5 (5.0-8.5); URINE APPEARANCE Clear (CLEAR/HAZY); URINE BLOOD Negative (NEGATIVE); URINE COLOR Yellow (YELLOW); URINE GLUCOSE Negative (NEGATIVE); URINE KETONE Negative (NEGATIVE); URINE NITRATE Negative (NEGATIVE); URINE PROTEIN(semi-quant) Negative (NEGATIVE); URINE UROBILINOGEN 0.2 E.U/dL (0.2-1.0)
[2023-07-27] MEDS ORDERED: Polyethylene Glycol 3350 17 GM PDS PO PRN (22:00)
[2023-07-27] MEDS ORDERED: Ondansetron 4 MG/2 ML VIAL IV PRN (22:00)
[2023-07-27] MEDS ORDERED: Acetaminophen 325 MG TAB PO PRN (22:00)
[2023-07-27 22:08] LABS: URINE BACTERIA Occasional /hpf (NONE SEEN); URINE RBC 0-2 /hpf (0-2)
[2023-07-27] MEDS ORDERED: Dextrose (Glucose) 15 GM (4 x 3.75 GM) Chewable TABLET PACK PO PRN (22:15)
[2023-07-27] MEDS ORDERED: Glucagon 1 MG VIAL IM PRN (22:15)
[2023-07-27] MEDS ORDERED: Dextrose 50% Water 25 GM/50 ML SYRINGE IV PRN (22:15)
[2023-07-27] MEDS ORDERED: TYLENOL 500MG500 MG PO (22:26)
[2023-07-27] MEDS ORDERED: MOTRIN 200200 MG/TAB PO (22:27)
[2023-07-27] MEDS ORDERED: FLEXERIL5 MG PO (22:28)
--- NOTE | 2023-07-27 22:50 | NUR ---
PATIENT ADMITTED TO 316 FROM ED. VS WNL WITH THE EXCEPTION ON HR-103 SLIGHTLY TACHY. NO ODERS FOR TELE AT THIS TIME. SKIN ASSESSMENT COMPLETE. PATIENT IS AXOX 4 AND CURRENTLY DENIES ANY PAIN OR NEEDS AT THIS TIME,
[2023-07-27 23:00] VITALS: BP 153/72; PULSE 101; TEMP 97.9
[2023-07-28] VITALS (11 sets, daily range): BP systolic 137–158; BP diastolic 68–81; PULSE 92–104; TEMP 97.6–97.8
[2023-07-28] MEDS ORDERED: HYDROcodone/Acetaminophen 10-325 MG TAB PO PRN (01:45)
[2023-07-28] MEDS ORDERED: Ibuprofen 400 MG TAB PO PRN (01:45)
[2023-07-28] MEDS ORDERED: Melatonin 3 MG TAB PO PRN (01:45)
[2023-07-28] MEDS ORDERED: Lidocaine 4% Topical Patch TP PRN (01:45)
--- NOTE | 2023-07-28 04:30 | NUR ---
HOSPITALIST NOTIFIED OF UA RESULTS. ORDERS TO AWAIT CULTURE RESULTS GIVEN SINCE PATIENT SHOWED NO CLINICAL SYMPTOMS AND C/O OF NO URGENCY OR DYSURIA,
[2023-07-28 07:24] LABS: CREATININE, serum 0.66 mg/dL (0.57-1.11); POTASSIUM 3.8 mmol/L (3.5-4.5)
[2023-07-28] MEDS ORDERED: Insulin Aspart (NovoLOG) SQ SCH (08:00)
[2023-07-28] MEDS ORDERED: Umeclidinium/Vilanterol 62.5-25 MCG INHALATION/INHALER IH SCH (09:00)
[2023-07-28] MEDS ORDERED: Cyclobenzaprine 10 MG TAB PO SCH (09:00)
[2023-07-28] MEDS ORDERED: Digoxin 0.125 MG TAB PO SCH (09:00)
[2023-07-28] MEDS ORDERED: VOLTAREN GEL 1%1 TU TP (11:31)
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
[2023-07-28] MEDS ORDERED: Atorvastatin 10 MG TAB PO SCH (21:00)
--- NOTE | 2023-07-28 21:43 | NUR ---
ANGELA WAS UP IN BED WITH FRIEND VISITING. SHE IS AXO X 4 AND C/O OF NO PAIN AT THIS TIME. CARRION WAS NOTED WHILE AMBULATING TO BATHROOM. SHE REMAINS ON 1-2L O2 NC. VS ARE WNL AND SHE DENIES ANY PAIN OR NEEDS AT THIS TIME. HANDGRIPS EQUAL AND BLLE STRENGTH SLIGHTLY WEAK ON LT. CALL LIGHT WITHIN REACH BED ALARM ON.
[2023-07-29] VITALS (11 sets, daily range): BP systolic 128–156; BP diastolic 69–82; PULSE 91–106; TEMP 97.7–98.2
--- NOTE | 2023-07-29 07:32 | NUR ---
ANGELA SLEPT SOUNDLY THROGHOUT THE NIGHT WITH NO EMERGENT STATUS CHANGES. SHE BELIEVES THAT MUSCLE RELAXERS GIVEN AT NIGHT HELPED HER SLEEP. SHE IS PLESANT AND IS CURRENTLY ORDERING BREAKFAST. SHE DENIES PAIN OR ANY NEEDS AT THIS TIME. [facility]
--- NOTE | 2023-07-29 08:58 | NUR ---
PATIENT ALERT AND ORIENTED X4. PATIENT REPORTS HAVING PAIN ON HER MIDBACK WHEN MOVED RATING IT 6/10 WHEN MOVING. PATIENT EXPRESSES ' IS IF THE MOVEMENT IS RUBBING NERVES TOGETHER". SHIFT ASSESSMENT COMPLETED. PATIENT HAS CONCERNS ABOUT HER BACK.PATIENT REPORTS LEFT LEG WEAKNESS IN GENERAL. SHE EXPRESSES ' LEFT KNEE IS THE KNEE THAT KSENIA FIRST AND THERE IS NO WARNING OF WHEN IT'S GOING TO COLLAPSE". PATIENT CALL LIGHT WITHIN REACH. BED AT LOWEST POSITION. BED ALARM ON.
[2023-07-29] MEDS ORDERED: Acetaminophen 500 MG TAB PO SCH (11:15)
[2023-07-29] MEDS ORDERED: Insulin Aspart (NovoLOG) SQ ONE (16:00)
--- NOTE | 2023-07-29 16:25 | NUR ---
Home Health Nurse was notified that patient is being upgraded to inpatient status. SW met with patient to review discharge plan and patient is agreeable to [facility]. MEE student, Mariana faxed updates to [facility]. MEE also contacted patient's daughter, Emiliana to inform her patient would not discharge today. Discharge Plan: [facility] SNF
[2023-07-30] VITALS (13 sets, daily range): BP systolic 109–146; BP diastolic 60–78; PULSE 92–112; TEMP 97.3–98
--- NOTE | 2023-07-30 06:45 | NUR ---
PATINET AWAKE AND ALERT, SITTING UP IN BED. PATIENT DENEIS ANY NEEDS OR COMPLAINTS AT THIS TIME. CALL LIGHT WITHIN REACH. BED ALARM ON. FALL PRCAUTIONS IN PLACE.
[2023-07-30 08:01] LABS: BASO # 0.1 K/mm3 (0.0-0.2); BASO % 1.1 % (0.0-2.0); EOS # 0.4 K/mm3 (0.0-0.7); EOS % 5.9 % (0.0-4.0); GRAN # 3.6 K/mm3 (1.4-6.5); GRAN % 58.1 % (42.2-75.2); HEMOGLOBIN 12.8 g/dl (12.5-16.0); LYMPH # 1.5 K/mm3 (1.2-3.4); LYMPH % 23.8 % (20.0-51.0); MEAN CELL VOLUME 97 fl (80.0-100.0); MEAN CORPUSCULAR HEMOGLOBIN 33 pg (27-31); MEAN CORPUSCULAR HGB CONC 34 g/dl (33.0-37.0); MEAN PLATELET VOLUME 9.3 fl (7.4-10.4); MONO # 0.7 K/mm3 (0.1-0.6); MONO % 10.8 % (1.7-9.3); PLATELET COUNT 308 K/mm3 (130-400); RED BLOOD COUNT 3.91 M/mm3 (4.10-5.30); REDCELL DISTRIBUTION WIDTH-CV 13.8 % (11.5-14.5)
[2023-07-30 08:37] LABS: CALCIUM 9.2 mg/dL (8.4-10.2); CREATININE, serum 0.68 mg/dL (0.57-1.11); POTASSIUM 4.6 mmol/L (3.5-4.5)
--- NOTE | 2023-07-30 13:20 | NUR ---
PATIENT MRI RESULTS CLOUDED TO SV. SOSA AWARE
[2023-07-31 00:05] VITALS: BP_SYST 115
[2023-07-31 04:01] VITALS: BP 112/73; PULSE 100; TEMP 97.4
[2023-07-31 04:05] VITALS: BP_SYST 112
[2023-07-31 07:20] VITALS: BP 139/79; PULSE 95; TEMP 97.4
[2023-07-31 09:26] VITALS: BP_SYST 139
--- NOTE | 2023-07-31 09:26 | NUR ---
PATIETN WAS UP TO TOILET AND BACK TO BED. O2 95% ON ROOM AIR. PER PATIENT SHE USES O2 AT NIGHT AT HOME.
--- NOTE | 2023-07-31 10:23 | NUR ---
REPORT CALLED TO IRINA AT [facility]. 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 BEDSIDE REPORT THEN GIVEN TO JOHNATHAN RN FROM [facility] WHEN SHE ARRIVED TO PICK PATIENT UP. JUAN DAVID LEFT INSTABLE OCNIDITON WITH HER BRACE, HOME MEDS AND ALL OTHER BELONGINGS.
--- NOTE | 2023-07-31 10:45 | NUR ---
PATIENT TAKEN VIA WHEELCHAIR TO [facility] BY HER NURSE JOSÉ. PATIENT LEFT INSTABLE CONDITIN
--- NOTE | 2023-07-31 13:41 | NUR ---
SW was informed that patient would be discharging on ths day. DC orders sent to [facility], transportation set up for patient to dc.
== END 2023-07-31 12:01 | DRG 552 ==
LOC: COL.ER 20:31 → MEDICAL 21:51
PROVIDERS: Family Medicine; Physician Assistant; ADMIT Internal Medicine
DX: S22.080A Wedge compression fracture of T11-T12 vertebra, initial encounter for closed fracture (principal); E44.0 Moderate protein-calorie malnutrition; J44.9 Chronic obstructive pulmonary disease, unspecified; E11.9 Type 2 diabetes mellitus without complications; M81.0 Age-related osteoporosis without current pathological fracture; E88.01 Alpha-1-antitrypsin deficiency; R29.6 Repeated falls; W18.30XA Fall on same level, unspecified, initial encounter; Y92.009 Unspecified place in unspecified non-institutional (private) residence as the place of occurrence of the external cause; Z79.82 Long term (current) use of aspirin; Z90.710 Acquired absence of both cervix and uterus; Z95.2 Presence of prosthetic heart valve; Z91.81 History of falling
CPT/HCPCS: G0378; J1650; J1815

== ENCOUNTER → 2023-08-17 | Outpatient (CLI) | payer MEDICARE, BC ==
[~2023-08-17] MED LIST changes: +FARXIGA10 PO; +FLEXERIL5 MG PO; +MOTRIN 200200 MG/TAB PO; +TOPROL XL 25MG25 MG PO; +TYLENOL 500MG500 MG PO; +ULTRAM 50MG TAB50 MG PO; +VOLTAREN GEL 1%1 TU TP
== END ==
LOC: COL.RAD 11:45
DX: S22.089A Unspecified fracture of T11-T12 vertebra, initial encounter for closed fracture (principal); S22.059D Unspecified fracture of T5-T6 vertebra, subsequent encounter for fracture with routine healing; M48.07 Spinal stenosis, lumbosacral region

== ENCOUNTER 2023-08-24 13:30 | Outpatient (RCR) | payer MEDICARE, BC ==
[2023-08-03 13:58] VITALS: BP 130/72; PULSE 106
--- NOTE | 2023-08-03 14:50 | NUR ---
Pt tolerated zemaira without issue. IV DC'd, site wrapped with coban. Discussed new rx for evenity with pt, she is scheduled for first dose next Tue. Drug information packet provided to pt today regarding evenity. Awaiting return call from [facility].
[2023-08-10 15:38] VITALS: BP 131/70; PULSE 99; TEMP 98
[2023-08-17 13:24] VITALS: BP 154/79; PULSE 100; TEMP 97.9
[~2023-08-24] VITALS: Ht 172.7 cm; Wt 62.8 kg
[~2023-08-24 13:30] MED LIST changes: -FARXIGA10 PO; +NS Flush 25 ML IV Bag IV PRN; +Romosozumab-aqqg 210 MG/2.34 ML 2-Syringe KIT SQ ONE; -TOPROL XL 25MG25 MG PO; -ULTRAM 50MG TAB50 MG PO; +WATER FOR INJECTION STERILE IV SCH; +[UNRECOGNIZED DRUG - OTHER] IV SCH
[2023-08-24] MEDS ORDERED: ULTRAM 50MG TAB50 MG PO (13:51)
[2023-08-24] MEDS ORDERED: FARXIGA10 PO (13:52)
[2023-08-24] MEDS ORDERED: TOPROL XL 25MG25 MG PO (13:52)
[2023-08-24 14:05] VITALS: BP 132/79; PULSE 96; TEMP 95.3
--- NOTE | 2023-08-24 15:03 | NUR ---
IV DC'd, site wrapped with coban. Pt assisted to wheelchair, then out to meet [facility] transport staff. Noted on nurse communication form for assisted that pt still has active order for fosamax. Per our pharmacy, pt should only be on one medicaiton to prevent issues with serum calcium levels. Our pharmacy did give ok to procede with first dose of evenity, and was aware of last dose of fosamax given Tuesday. Message was left on Dr Cordon's office phone to have them follow up on orders with assisted.
--- NOTE | 2023-08-24 15:11 | NUR ---
Dr Cordon's office returns call stating they are ok proceding with evenity as ordered, they will follow up with [facility] to rl friedman.
== END 2023-08-24 15:45 | disposition home or self-care (01) ==
LOC: EUO 13:30
DX: E88.01 Alpha-1-antitrypsin deficiency (principal)
CPT/HCPCS: J0256; J3111

== ENCOUNTER 2023-12-21 13:30 | Outpatient (RCR) | payer MEDICARE, BC ==
[2023-12-07 13:38] VITALS: BP 97/63; PULSE 81; TEMP 97.4
--- NOTE | 2023-12-07 14:26 | NUR ---
Pt brought to [facility] by wheelchair. Meds and HX reviewed with the pt. IV started, L hand 24g. Pt was scheduled for weekly Zemaria infusion. Once the medication was available the infusion started. The medication ran for about 17 mins. Once the infusion was done, the IV was dc'd and wrapped in coban. Pt exited the unit by wheelchair.
[2023-12-14 13:31] VITALS: BP 111/68; PULSE 74; TEMP 97.5
[~2023-12-21] VITALS: Ht 172.7 cm; Wt 57.4 kg
[~2023-12-21 13:30] MED LIST changes: -B-121000 MCG PO; +CALCIUM CITRATE1 TA7 PO; +EVENITY (2210 MG/2.3 SQ; +FARXIGA10 PO; +MASON NATURAL2000 IU PO; -NS Flush 25 ML IV Bag IV PRN; +NS Flush 25 ML IV Bag IV SCH; +PACERONE400 MG PO; -Romosozumab-aqqg 210 MG/2.34 ML 2-Syringe KIT SQ ONE; +TOPROL XL 25MG25 MG PO; +ULTRAM 50MG TAB50 MG PO; +VITAMIN B122500 MCG SL; -VITAMIN D31000 I1 PO; -WATER FOR INJECTION STERILE IV SCH; -[UNRECOGNIZED DRUG - OTHER] IV SCH
[2023-12-21 13:44] VITALS: BP 134/79; PULSE 94; TEMP 98.4
[2023-12-21] MEDS ORDERED: Romosozumab-aqqg 210 MG/2.34 ML 2-Syringe KIT SQ ONE (13:45)
== END 2023-12-21 14:30 | disposition home or self-care (01) ==
LOC: EUO 13:30
DX: M80.00XG Age-related osteoporosis with current pathological fracture, unspecified site, subsequent encounter for fracture with delayed healing (principal)
CPT/HCPCS: J0256; J3111

== ENCOUNTER 2024-02-22 13:30 | Outpatient (RCR) | payer MEDICARE, BC ==
[2024-02-01 13:29] VITALS: BP 117/68; PULSE 80; TEMP 97.6
[2024-02-08 13:29] VITALS: BP 122/67; PULSE 82; TEMP 97.4
--- NOTE | 2024-02-08 14:29 | NUR ---
PT LEAVES IN WHEELCHAIR WITH STAFF.
[2024-02-15 13:33] VITALS: BP 136/69; PULSE 78; TEMP 97.3
[~2024-02-22] VITALS: Ht 167.6 cm; Wt 56.1 kg
[2024-02-22 13:28] VITALS: BP 120/74; PULSE 82; TEMP 97.2
[~2024-02-22 13:30] MED LIST changes: +NS Flush 25 ML IV Bag IV ONE; -NS Flush 25 ML IV Bag IV SCH; +Romosozumab-aqqg 210 MG/2.34 ML 2-Syringe KIT SQ ONE; +[UNRECOGNIZED DRUG - OTHER] IV SCH
== END 2024-02-22 16:35 | disposition home or self-care (01) ==
LOC: EUO 13:30
DX: M80.00XG Age-related osteoporosis with current pathological fracture, unspecified site, subsequent encounter for fracture with delayed healing (principal); E88.01 Alpha-1-antitrypsin deficiency
CPT/HCPCS: J0256; J3111

== ENCOUNTER → 2024-02-29 | Outpatient (CLI) | payer MEDICARE, BC ==
[~2024-02-29] MED LIST changes: -NS Flush 25 ML IV Bag IV ONE; -Romosozumab-aqqg 210 MG/2.34 ML 2-Syringe KIT SQ ONE; -[UNRECOGNIZED DRUG - OTHER] IV SCH
== END ==
LOC: DIA.ED
DX: E11.59 Type 2 diabetes mellitus with other circulatory complications (principal); Z79.84 Long term (current) use of oral hypoglycemic drugs; E78.5 Hyperlipidemia, unspecified
CPT/HCPCS: G0108